=== PATIENT | male | born 1965 | race American Indian/Alaskan Native ===

== ENCOUNTER 2021-12-16 16:02 | Emergency (ER) | payer MEDICAID ==
[2021-12-16] MEDS ORDERED: levETIRAcetam 1000 MG/NS 0.75% 1,000 MG/100 ML BAG IV NR (16:11)
--- NOTE | 2021-12-16 17:13 | Emergency Department Report ---
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 Patient has episodes of staring off and body tensing up without any shaking activity. Patient received Ativan 2 mg via long term prior to arrival and additional 2 mg via EMS. As per patient's MAR patient takes Depakote, Vimpat, and Keppra for seizures. Patient states he takes oral chemotherapy medication As per long term MAR Vimpat 200 mg twice daily Depakote ER 2000 mg daily Morphine sulfate sublingual as needed pain Ativan 1 mg every 4 hours as needed anxiety, agitation or seizures, Dexamethasone 4 mg every 12 hours Keppra 500 mg every 12 hours Haldol as needed Promethazine as needed Acetaminophen as needed Hyoscyamine as needed for secretions Ibuprofen as needed tramadol as needed hydroxyzine as needed biscaodyl rectally prn constipation - Related Data Allergies Allergy/AdvReac Type Severity Reaction Status Date / Time No Known Allergies Allergy Unverified 12/16/21 17:21 ED Review of Systems ROS: Stated complaint: SEIZURE Other details as noted in HPI ED Physical Exam - Other Other exam information: General: No acute distress Head: Atraumatic Eyes: normal appearance ENT: Moist mucous membranes Neck: Normal appearance, no midline tenderness Chest: Clear to auscultation bilaterally CV: Regular rate and rhythm Abdomen: Soft, normal bowel sounds, nontender, nondistended, no rebound or guarding Back: Normal inspection Extremity: Normal inspection, full range of motion Neuro: Alert O x 3, no facial asymmetry, speech clear, right-sided weakness without any antigravity movement baseline as per patient, 5/5 left-sided strength, sensation grossly intact Psych: Appropriate behavior Skin: No rash ED Course Vital Signs 12/16/21 12/16/21 12/16/21 16:11 17:35 17:46 Temperature 98.3 F Pulse Rate 111 H 93 H 94 H Respiratory 16 16 16 Rate Blood Pressure 217/149 Blood Pressure 107/81 [Left] O2 Sat by Pulse 98 Oximetry 12/16/21 12/16/21 12/16/21 18:00 18:16 18:30 Temperature Pulse Rate 96 H 97 H 94 H Respiratory 17 17 16 Rate Blood Pressure 217/149 217/149 124/90 Blood Pressure [Left] O2 Sat by Pulse Oximetry 12/16/21 12/16/21 12/16/21 18:46 19:00 19:14 Temperature Pulse Rate 104 H 92 H Respiratory 16 13 Rate Blood Pressure 124/90 151/97 Blood Pressure [Left] O2 Sat by Pulse 95 Oximetry - Consultations Consultation #1: 12/16/21 19:12 Case discussed with on-call neurology attending DR Membreno who is willing to accept pt, will call back regarding logistcs 12/16/21 19:32 Patient accepted for inpatient admission to [place] - Central Line Placement Right Femoral Consent Obtained: emergent situation Time Out Performed: Yes Patient Placed on Monitor/Pulse Ox: Yes Prep: gloves Central Line Prep: Chlorhexidine scrub, sterile drapes applied Local Anesthesia Used: Lidocaine 1% Amount of Anesthesia Used (mls): 5 Ultrasound Used for Placement: No Central Line Lumen Inserted: triple Reason for Insertion: Emergency Venous Access Bloods Obtained for Lab: Yes Central Line Position: good blood return Dressing Applied: Tegaderm Patient Tolerated Procedure: well, no complications Complications: none Additional Comments: white port does not give blood return, appears to be obstruction. Nurse instructed to use other 2 ports only ED Medical Decision Making - Lab Data Result diagrams: 12/16/21 Unknown 12/16/21 Unknown - EKG Data -: EKG Interpreted by Hi EKG shows normal: sinus rhythm, intervals (qtc 461), ST-T waves (no stemi) Rate: normal (95) - Radiology Data Radiology results: report reviewed CRITICAL RESULT: Time of Discovery (NEWSPAPER STUFFER/CDT): 1635 Central standard time Time of Communication (NEWSPAPER STUFFER/CDT): 1640 Central standard time Licensed Practitioner Receiving Report: Dr. Lilia Raymond Read-Back Performed: Not applicable. Signer Name: Herbert Michaud MD Signed: 12/16/2021 5:47 PM Workstation Name: [id number] Addendum Transcribed By: Addendum Dictated By: Herbert Michaud MD Addendum Electronically Authenticated By: Herbert Michaud MD Addendum Signed Date/Time: 12/16/211746 DD/ TD/TT: / CT HEAD WITHOUT CONTRAST INDICATION / CLINICAL INFORMATION: hx of lung ca with brain mets, mutiple focal sz. TECHNIQUE: All CT scans at this location are performed using CT dose reduction for ALARA by means of automated exposure control. COMPARISON: None available. FINDINGS: HEMORRHAGE: There is a hemorrhagic lesion in the posterior aspect of the left frontal lobe within the superior frontal gyrus. There is surrounding vasogenic edema. Given the patient's history the possibility of hemorrhagic metastasis is likely. A contusion could produce a similar appearance. Calcified or hemorrhagic lesions are seen anterior to this finding along the inner table of the left parietal bone. This could represent a calcified meningioma or a second metastasis. EXTRA-AXIAL SPACES: Cortical sulci, sylvian fissures and basilar cisterns have an unremarkable appearance. VENTRICULAR SYSTEM: The third and lateral ventricles are of normal size and configuration. CEREBRAL PARENCHYMA: In addition to the presumed hemorrhagic metastasis in the left frontal lobe several remote small deep infarctions are demonstrated in a bilateral gangliocapsular distribution. MIDLINE SHIFT OR HERNIATION: There is no mass effect. CEREBELLUM / BRAINSTEM: Brainstem and cerebellum have an unremarkable appearance. MIDLINE STRUCTURES:No abnormalities of the pituitary gland or pineal region are identified. INTRACRANIAL VESSELS:No abnormalities are identified on this noncontrast head CT. ORBITS: visualized portions of the orbits have an unremarkable appearance. SOFT TISSUES of HEAD: No significant abnormality. CALVARIUM: Evaluation of bone windows reveals no abnormalities. PARANASAL SINUSES / MASTOID AIR CELLS: Opacification of both maxillary sinuses is noted. Absence of the nasal septum and nasal turbinates is observed. This could be a postoperative change, correlation with surgical history is advised. Alternatively possibility of inhalational disease and/or inflammatory disease such as Mahamed's granulomatosis could also be considered. ADDITIONAL FINDINGS: None. IMPRESSION: 1. Findings most consistent with hemorrhagic brain metastasis in the left superior frontal gyrus as descr -- ibed above. 2. An additional hemorrhagic versus calcified lesion is seen along the inner table of the parietal bone just anterior to the presumed hemorrhagic metastasis. 3. Abnormal sinonasal cavity. Please refer to the above discussion. Signer Name: Herbert Michaud MD Signed: 12/16/2021 5:39 PM Workstation Name: [id number] Transcribed By: Dictated By: Herbert Michaud MD Electronically Authenticated By: Herbert Michaud MD Signed Date/Time: 12/16/211738 DD/ 30 TD/TT: [Addendum Report Added by HERBERT MICHAUD at 2021-12-16 17:56:59] [facility] [address] [place] [address] Cat Scan Report Signed Patient: DORI SHEEHAN MR#: [id number] 0 : 1965 Acct:[id number] Age/Sex: 56 / M ADM Date: 12/16/21 Loc: ED Attending Dr: Ordering Physician: LILIA RAYMOND MD Date of Service: 12/16/21 Procedure(s): CT head/brain wo con Accession Number(s): [id number] cc: LILIA RAYMOND MD CT HEAD WITHOUT CONTRAST INDICATION / CLINICAL INFORMATION: hx of lung ca with brain mets, mutiple focal sz. TECHNIQUE: All CT scans at this location are performed using CT dose reduction for ALARA by means of automated exposure control. COMPARISON: None available. FINDINGS: HEMORRHAGE: There is a hemorrhagic lesion in the posterior aspect of the left frontal lobe within the superior frontal gyrus. There is surrounding vasogenic edema. Given the patient's history the possibility of hemorrhagic metastasis is likely. A contusion could produce a similar appearance. Calcified or hemorrhagic lesions are seen anterior to this finding along the inner table of the left parietal bone. This could represent a calcified meningioma or a second metastasis. EXTRA-AXIAL SPACES: Cortical sulci, sylvian fissures and basilar cisterns have an unremarkable appearance. VENTRICULAR SYSTEM: The third and lateral ventricles are of normal size and configuration. CEREBRAL PARENCHYMA: In addition to the presumed hemorrhagic metastasis in the left frontal lobe several remote small deep infarctions are demonstrated in a bilateral gangliocapsular distribution. MIDLINE SHIFT OR HERNIATION: There is no mass effect. CEREBELLUM / BRAINSTEM: Brainstem and cerebellum have an unremarkable appearance. MIDLINE STRUCTURES:No abnormalities of the pituitary gland or pineal region are identified. INTRACRANIAL VESSELS:No abnormalities are identified on this noncontrast head CT. ORBITS: visualized portions of the orbits have an unremarkable appearance. SOFT TISSUES of HEAD: No significant abnormality. CALVARIUM: Evaluation of bone windows reveals no abnormalities. PARANASAL SINUSES / MASTOID AIR CELLS: Opacification of both maxillary sinuses is noted. Absence of the nasal septum and nasal turbinates is observed. This could be a postoperative change, correlation with surgical history is advised. Alternatively possibility of inhalational disease and/or inflammatory disease such as Mahamed's granulomatosis could also be considered. ADDITIONAL FINDINGS: None. IMPRESSION: 1. Findings most consistent with hemorrhagic brain metastasis in the left superior frontal gyrus as described above. 2. An additional hemorrhagic versus calcified lesion is seen along the inner table of the parietal bone just anterior to the presumed hemorrhagic metastasis. 3. Abnormal sinonasal cavity. Please refer to the above discussion. Signer Name: Herbert Michaud MD - Medical Decision Making 56-year male presents to the hospital with recurrent seizures. Patient has hi story of lung cancer with mets to the brain. Patient has intermittent episodes of right gaze, unresponsiveness, and intermittent twitching of the right side that last for several minutes. Symptoms spontaneous resolved and patient begins speaking and is oriented without a postictal state. Patient complains of ongoing chronic leg pain without headache. Patient had delayed IV medication because of access difficulty. Peripheral lines were attempted multiple times by the nurse and myself. Central line was placed with 2 working ports. White port would not return blood and therefore will not be used. Case was discussed with neurology at [facility] and accepted for inpatient admission. Keppra 2 g, Vimpat 200 mg were provided. Regular insulin provided for hyperglycemia without laboratory findings of E DKA. Diabetes is not listed on current problem list from long term and patient does not take diabetes medication. Hyperglycemia could be secondary to chronic dexamethasone use. Depakote level is therapeutic and repeat potassium in normal range Critical Care Time: Yes Critical care time in (mins) excluding proc time.: 50 Critical care attestation.: If time is entered above; I have spent that time in minutes in the direct care of this critically ill patient, excluding procedure time. Critical Care Time: 50 Minutes of critical care time excluding procedures were used in the care of the patient. I came immediately to the bedside upon patient's arrival. I obtained history from EMS at the bedside. I discussed treatment plan with the nursing team members. I reviewed electronic record. I spoke with family to obtain medical history. Patient required multiple interventions and reassessments. Spoke to specialist and coordinated care to outside facility ([facility]) ED Disposition Clinical Impression: Status epilepticus due to complex partial seizure, Steroid-induced hyperglycemia, Brain metastasis, Brainstem hemorrhage Disposition: 02 SHORT TERM HOSPITAL Is pt being admited?: No Condition: Stable Time of Disposition: 19:54 (transfer to [facility])
--- NOTE | 2021-12-16 17:47 | Cat Scan Report ---
CT HEAD WITHOUT CONTRAST INDICATION / CLINICAL INFORMATION: hx of lung ca with brain mets, mutiple focal sz. TECHNIQUE: All CT scans at this location are performed using CT dose reduction for ALARA by means of automated e xposure control. COMPARISON: None available. FINDINGS: HEMORRHAGE: There is a hemorrhagic lesion in the posterior aspect of the left frontal lobe within the superior frontal gyrus. There is surrounding vasogenic edema. Given the patient's history the possib ility of hemorrhagic metastasis is likely. A contusion could produce a similar appearance. Calcified or hemorrhagic lesions are seen anterior to this finding along the inner table of the left parietal b one. This could represent a calcified meningioma or a second metastasis. EXTRA-AXIAL SPACES: Cortical sulci, sylvian fissures and basilar cisterns have an unremarkable appear ance. VENTRICULAR SYSTEM: The third and lateral ventricles are of normal size and configuration. CEREBRAL PARENCHYMA: In addition to the presumed hemorrhagic metastasis in the left frontal lobe catalina ral remote small deep infarctions are demonstrated in a bilateral gangliocapsular distribution. MIDLINE SHIFT OR HERNIATION: There is no mass effect. CEREBELLUM / BRAINSTEM: Brainstem and cerebellum have an unremarkable appearance. MIDLINE STRUCTURES:No abnormalities of the pituitary gland or pineal region are identified. INTRACRANIAL VESSELS:No abnormalities are identified on this noncontrast head CT. ORBITS: visualized portions of the orbits have an unremarkable appearance. SOFT TISSUES of HEAD: No significant abnormality. CALVARIUM: Evaluation of bone windows reveals no abnormalities. PARANASAL SINUSES / MASTOID AIR CELLS: Opacification of both maxillary sinuses is noted. Absence of t he nasal septum and nasal turbinates is observed. This could be a postoperative change, correlation w ith surgical history is advised. Alternatively possibility of inhalational disease and/or inflammator y disease such as Mahamed's granulomatosis could also be considered. ADDITIONAL FINDINGS: None. IMPRESSION: 1. Findings most consistent with hemorrhagic brain metastasis in the left superior frontal gyrus as d escribed above. 2. An additional hemorrhagic versus calcified lesion is seen along the inner table of the parietal maurizio ne just anterior to the presumed hemorrhagic metastasis. 3. Abnormal sinonasal cavity. Please refer to the above discussion. Signer Name: Herbert Rosa MD Signed: 12/16/2021 5:39 PM Workstation Name: [id number]
[2021-12-16 19:05] LABS: INR 0.95 (0.87-1.13)
[2021-12-16] MEDS ORDERED: dexAMETHasone 4 MG/ML VIAL IV ONE (19:06)
[2021-12-16 19:14] LABS: Albumin 3.3 g/dL (3.9-5); BUN/Creatinine Ratio 28; Blood Urea Nitrogen 25 mg/dL (9-20); Calcium 9.3 mg/dL (8.4-10.2); Hemolysis Index 742
[2021-12-16 19:16] LABS: Hematocrit 41.7 % (35.5-45.6); Hemoglobin 13.6 gm/dl (11.8-15.2); Lymphocytes % (Auto) 34.9 % (13.4-35.0); Mean Corpuscular HGB Conc 33 % (32-34); Mean Corpuscular Volume 83 fl (84-94); Monocytes % (Auto) 6.8 % (0.0-7.3); Platelet Count 49 K/mm3 (140-440); Red Cell Distribution Width 21.3 % (13.2-15.2)
[2021-12-16 19:17] LABS: Basophils # (Auto) 0.1 K/mm3 (0.0-0.1); Lymphocytes # (Auto) 3.7 K/mm3 (1.2-5.4); Monocytes # (Auto) 0.7 K/mm3 (0.0-0.8)
[2021-12-16 19:25] LABS: Partial Thromboplastin Time < 20.0 Sec. (24.2-36.6)
[2021-12-16 19:27] LABS: Alanine Aminotransferase < 5 units/L (7-56)
[2021-12-16] MEDS ORDERED: INSULIN REGULAR, HUMAN 100 UNITS/1 ML IV ONE (19:30)
[2021-12-16] MEDS ORDERED: LACOSAMIDE 200 MG in SODIUM CHLORIDE 0.9% 100 ML IV ONE (19:33)
[2021-12-16] MEDS ORDERED: levETIRAcetam 1000 MG/NS 0.75% 1,000 MG/100 ML BAG IV ONE ×2 (19:33→19:38)
[2021-12-16] MEDS ORDERED: SODIUM CHLORIDE 0.9% 1000 ML 1,000 ML IV ONE (19:38)
--- NOTE | 2021-12-16 20:26 | XRay Report ---
Chest single view INDICATION: Seizures IMPRESSION: The left hemidiaphragm is elevated and there is some airspace disease present within the left lower lung. The right lung is grossly clear. Signer Name: Bennie Leavitt MD Signed: 12/16/2021 8:21 PM Workstation Name: [id number]
[2021-12-17 01:06] VITALS: BP 108/81
--- NOTE | 2021-12-17 09:18 | Electrocardiograph Report ---
[facility] Test Date: 2021-12-16 Test Time: 19:38:50 Pat Name: DORI SHEEHAN Department: Room: Gender: M Gusset Folder: : 1965 Requested By: LILIA RAYMOND Order Number: [id number] Reading MD: Leo Shrestha Measurements Intervals Cunningham Rate: 95 P: 56 SC: 137 QRS: 17 QRSD: 102 T: 64 QT: 365 QTc: 461 Interpretive Statements Sinus rhythm No previous ECG available for comparison Electronically Signed On 12-17-2021 9:17:42 EDT by Leo Shrestha
== END 2021-12-17 00:25 | disposition short-term general hospital (02) ==
LOC: ED 16:02
DX: G40.909 Epilepsy, unspecified, not intractable, without status epilepticus (principal); E09.65 Drug or chemical induced diabetes mellitus with hyperglycemia; C79.31 Secondary malignant neoplasm of brain; I61.3 Nontraumatic intracerebral hemorrhage in brain stem
CPT/HCPCS: 36415; 36556; 70450; 71045; 80053; 80164; 82962; 83735; 84132; 85025; 85610; 85730; 93005; 96365; 96375; 96376; 99291; C9254; J1100; J1953; J7030; 99285; Q9967; J1815